=== PATIENT | male | born 1945 | race Caucasian/White ===

== ENCOUNTER 2016-05-09 14:02 | Observation (INO) | payer OTHER ==
[2016-05-09 14:23] VITALS: BMI 25.8
[2016-05-09] MEDS ORDERED: ASPIRIN 81 MG CHEWABLE TABLETS PO ONE (14:32)
--- NOTE | 2016-05-09 14:32 | PDOC ---
History of Present Illness - General Chief Complaint: Chest Pain Stated Complaint: CHEST PAIN Time Seen by Provider: 05/09/16 14:31 History Source: Patient Exam Limitations: No Limitations - History of Present Illness Initial Comments: 05/09/16 15:03 This pt is a 63 yo F/M with a past medical history of HTN, borderline DM and borderline HLD (not taking any medications) Pt presents to the ER with a complaint of chest pain Pain began last night pain is described as sharp, radiates to the neck No associated shortness of breath Pain is 4-6/10 Pt denies chest wall trauma or bruising. Pt denies lower extremity edema. Pt denies cough or URI symptoms currently (did have symptoms 3 weeks ago) Pt denies nausea or diaphoresis Pt denies lightheadedness, palpitations, or syncope Pt denies radiation of pain to his back Pain worsens with exertion, and self resolves. Pt denies allergies, and significant past hospitalizations. Pt denies alcohol use, tobacco use, or recreational drug use. Pt denies past history of cardiac disease. Pt denies recent travel. PMH: HTN, Prostate cancer s/p radiatio PSH: denies Meds: please seen MAR ALL; PCN Social: denies drug or tobacco use GENERAL/CONSTITUTIONAL: No: fever, chills, weakness, loss of appetite. HEAD, EYES, EARS, NOSE AND THROAT: No: change in vision, ear pain, discharge, sore throat, throat swelling. CARDIOVASCULAR: (+) chest pain (non currently) No: lightheadedness, palpitations , syncope RESPIRATORY: No: cough, shortness of breath, wheezing, hemoptysis, stridor. GASTROINTESTINAL: No: nausea, vomiting, diarrhea, abdominal cramping, rectal bleeding, constipation. GENITOURINARY: No: dysuria, hematuria, frequency, urgency, flank pain. MUSCULOSKELETAL: No: back pain, neck pain, joint pain, muscle swelling or pain SKIN AND BREASTS: No: lesions, pallor, rash or easy bruising. NEUROLOGIC: No: headache, vertigo, paresthesias, weakness ENDOCRINE: No: unexplained weight gain or loss HEMATOLOGIC/LYMPHATIC: No: anemia, easy bleeding, swelling nodes. GENERAL: The patient is in no acute distress. HEAD: Normal with no signs of trauma. EYES: PERRLA, EOMI, sclera anicteric, conjunctiva clear. ENT: Ears normal, nares patent, oropharynx clear without exudates. Moist mucous membranes. NECK: Normal range of motion, supple without lymphadenopathy, JVD, or masses. LUNGS: Breath sounds equal, clear to auscultation bilaterally. No wheezes, and no crackles. HEART: Regular rate and rhythm, normal S1 and S2 without murmur, rub or gallop. ABDOMEN: Soft, nontender, normoactive bowel sounds. No guarding, no rebound. No masses palpable. EXTREMITIES: Normal range of motion, no edema. No clubbing or cyanosis. No erythema, or tenderness. NEUROLOGICAL: Cranial nerves II through XII grossly intact. Normal speech. No focal neurological deficits. MUSCULOSKELETAL: Back non-tender to palpation, no CVA tenderness SKIN: Warm, Dry, normal turgor, no rashes or lesions noted. 05/09/16 16:39 Past History - Past Medical History Allergies/Adverse Reactions: Allergies Allergy/AdvReac Type Severity Reaction Status Date / Time Penicillins Allergy Verified 05/09/16 14:23 Home Medications: Ambulatory Orders Amlodipine Besylate 0 mg PO DAILY 05/09/16 Valsartan [Diovan] 160 mg PO DAILY 05/10/16 Cancer: Yes (PROSTATE, RADIATION) HTN: Yes - Psycho/Social/Smoking Cessation Hx Anxiety: No Suicidal Ideation: No Smoking Status: No Smoking History: Never smoked Number of Cigarettes Smoked Daily: 0 Information on smoking cessation initiated: No Hx Alcohol Use: No Drug/Substance Use Hx: No Substance Use Type: None *Physical Exam - Vital Signs Last Vital Signs Temp Pulse Resp BP Pulse Ox 98.3 F 93 H 20 136/83 98 05/10/16 10:00 05/10/16 14:07 05/10/16 14:07 05/10/16 14:07 05/10/16 09:00 Heart Score/ECG Review - History History: Highly suspicious - Electrocardiogram EKG: Normal - Age Age: >/= 65 - Risk Factors Risk Factors Heart Score: Yes Hx Hypertension Based on the list above the patient has:: 1-2 risk factors - Troponin Troponin: </= normal limit - Score Heart Score - Total: 5 ED Treatment Course - LABORATORY CBC & Chemistry Diagram: 05/10/16 06:00 05/10/16 06:00 - ADDITIONAL ORDERS Additional order review: 05/09/16 15:04 RBC 5.37 MCV 82.8 MCHC 33.6 RDW 13.4 MPV 7.4 L Neutrophils % 76.1 D Lymphocytes % 15.3 D Monocytes % 6.7 Eosinophils % 0.6 D Basophils % 1.3 - RADIOLOGY Radiology Studies Ordered: Category Date Time Status CHEST PA & LAT [RAD] Stat Radiology 05/09/16 14:32 Completed - Medications Given in the ED: ED Medications Discontinued Medications Generic Name Dose Route Start Last Admin Trade Name Jennifer PRN Reason Stop Dose Admin Aspirin 162 mg 05/09/16 14:32 05/09/16 15:04 Asa - PO 05/09/16 14:33 162 mg ONCE ONE Administration Medical Decision Making - Medical Decision Making 05/09/16 14:31 Differential includes cardiac ischemia, pe, asthma exacerbation, pneumonia, pneumothorax, pleural effusion, costochondritis, pericarditis, GERD. 05/09/16 16:34 Will do labs Will do CXR Will EKG Will re assess Will give Aspirin Will re assess 05/09/16 16:37 Laboratory Tests 05/09/16 05/09/16 05/09/16 15:04 15:04 15:04 WBC 6.9 D Hgb 15.0 Hct 44.5 Plt Count 262 INR 1.11 Sodium 141 Potassium 4.4 Chloride 106 Carbon Dioxide 26 BUN 20 H Creatinine 1.0 Random Glucose 119 H Creatine Kinase 61 Troponin I < 0.02 B-Natriuretic Peptide 05/09/16 15:04 WBC Hgb Hct Plt Count INR Sodium Potassium Chloride Carbon Dioxide BUN Creatinine Random Glucose Creatine Kinase Troponin I B-Natriuretic Peptide 86.[address] Tejada Will admit to [facility] for observation and repeat troponin 05/09/16 16:38 *DC/Admit/Observation/Transfer Diagnosis at time of Disposition: Chest pain Qualifiers: Chest pain type: unspecified Qualified Code(s): R07.9 - Chest pain, unspecified - Discharge Dispostion Condition at time of disposition: Stable Admit: Yes
[2016-05-09] MEDS ORDERED: ASPIRIN 81 MG CHEWABLE TABLETS ONE (14:54)
[2016-05-09 15:11] LABS: BASOPHIL 1.3 % (0-2.0); EOSINOPHIL 0.6 % (0-4.5); MCH 27.8 pg (25.7-33.7); MCHC 33.6 g/dl (32.0-35.9); MEAN CELL VOLUME 82.8 fl (80-96); MEAN PLT VOLUME 7.4 fl (7.5-11.1); NEUTROPHILS 76.1 % (42.8-82.8); PLATELET COUNT 262 K/MM3 (134-434); RDW 13.4 % (11.9-15.9); WHITE BLOOD COUNT 6.9 K/mm3 (4.0-10.0)
[2016-05-09 15:24] LABS: INR 1.11 (0.82-1.09); PROTHROMBIN TIME (PATIENT) 12.2 SEC (9.98-11.88)
[2016-05-09 15:33] LABS: ALBUMIN 3.9 g/dl (3.4-5.0); ANION GAP 9 (8-16); BILIRUBIN,TOTAL 0.5 mg/dL (0.2-1.0); CALCIUM 9.3 mg/dL (8.5-10.1); CO2 26 mmol/L (21-32); GLUCOSE,RANDOM 119 mg/dL (74-106); MAGNESIUM 2.2 mg/dL (1.8-2.4); SGOT/AST 17 U/L (15-37); SGPT/ALT 25 U/L (12-78); TOT PROT 7.3 g/dl (6.4-8.2)
[2016-05-09 15:37] LABS: ALK PHOS 97 U/L (45-117); TROPONIN I < 0.02 ng/ml (0.00-0.05)
[2016-05-09 20:38] LABS: TROPONIN I < 0.02 ng/ml (0.00-0.05)
[2016-05-10 07:44] LABS: BASOPHIL 3.6 % (0-2.0); EOSINOPHIL 2.2 % (0-4.5); MCH 27.7 pg (25.7-33.7); MCHC 33.1 g/dl (32.0-35.9); MEAN CELL VOLUME 83.7 fl (80-96); MEAN PLT VOLUME 7.7 fl (7.5-11.1); NEUTROPHILS 62.7 % (42.8-82.8); PLATELET COUNT 214 K/MM3 (134-434); RDW 13.5 % (11.9-15.9); WHITE BLOOD COUNT 5.8 K/mm3 (4.0-10.0)
[2016-05-10 08:09] LABS: CALCIUM 8.9 mg/dL (8.5-10.1)
[2016-05-10 08:15] LABS: ALBUMIN 3.4 g/dl (3.4-5.0); ALK PHOS 82 U/L (45-117); ANION GAP 9 (8-16); BILIRUBIN,TOTAL 0.5 mg/dL (0.2-1.0); CHOLESTEROL 163 mg/dL (50-200); CO2 27 mmol/L (21-32); CREATININE 0.9 mg/dL (0.7-1.3); GLUCOSE,RANDOM 104 mg/dL (74-106); LDL CHOLESTEROL (ONLY SJRH) 122 mg/dL (5-100); SGOT/AST 14 U/L (15-37); SGPT/ALT 18 U/L (12-78); TOT PROT 6.1 g/dl (6.4-8.2)
[2016-05-10 08:28] LABS: TROPONIN I < 0.02 ng/ml (0.00-0.05)
[2016-05-10] MEDS: ENOXAPARIN NA (PORCINE) 40 MG/0.4 ML DISP.SYRIN SQ SCH (09:27)
[2016-05-10] MEDS: VALSARTAN 160 MG TABLET (UD) PO SCH (09:28)
[2016-05-10] MEDS: ASPIRIN COATED 81 MG TABLET.EC PO SCH (09:28)
--- NOTE | 2016-05-10 09:48 | PN ---
Progress Note (short form) - Note Progress Note: Cardiology Consult Dictated IMP: HTN H/o of prostate Ca Chest pain, with mixed features (typical and atypical) in setting of recent URI REC: 1. Cardiac enzymes - x 3 2. Echo for EF assessment and r/o pericardial dz 3. Plan for stress MPI Thursday AM 4. Telemetry 5. Aspirin.
[2016-05-10] MEDS: METOPROLOL SUCCINATE 25 MG TAB.SR.24H (FP) PO SCH (10:43)
--- NOTE | 2016-05-10 10:56 | CONS ---
DATE OF CONSULTATION: 05/10/2016 REQUESTING PHYSICIAN: Katy Tejada MD REASON FOR CONSULTATION: Chest pain. HISTORY OF PRESENT ILLNESS: The patient is a 71-year-old man with history of prostate cancer status post radiation therapy, chronic hypertension, recent viral upper respiratory infection with persistent dry cough, who presented to the emergency room with an episode of substernal chest pressure which occurred yesterday while walking. He describes the discomfort as substernal chest pressure, tightness, with some radiation to the neck. It was relieved with resting. Patient had a similar episode several weeks ago, at which time, he saw his primary care physician and reports having had an exercise treadmill stress test which was unremarkable. According to the patients description, it appeared that he had a regular treadmill stress test without nuclear imaging. The discomfort completely resolved for the subsequent 2 weeks and again resurfaced yesterday. He denies nausea, vomiting, or diaphoresis. He denies palpitations, edema, or recent CHF symptoms. He has no history of cardiac disease. He describes being ill with a viral upper respiratory infection for the last 2-3 weeks with persistent cough. He denies fevers or chills. He has been comfortable overnight with no recurrence of chest pain. ECGs have not shown acute ischemic changes. ALLERGIES: He is allergic to PENICILLIN. MEDICATIONS: His home medications include valsartan 160 mg daily and amlodipine unknown dose. Here, he has been started on aspirin, subcutaneous Lovenox at the DVT prophylactic dose, and valsartan 160 mg daily. FAMILY HISTORY: Both parents had cardiac disease. He is unable to explain the exact extent of it, but both of them suffered from myocardial infarctions. SOCIAL HISTORY: A nonsmoker, has social alcohol, denies illegal drug use. PHYSICAL EXAMINATION: Vital signs: Afebrile, comfortable, pulse 88 and regular, blood pressure 123/ 84 (on presentation 151/97), O2 saturation 97 on room air. Neck: 2+ carotid pulses with no bruits. Heart: Regular with no murmurs. Chest: Clear, no wheezing. Abdomen: Soft, nontender. Extremities: Warm with no edema. DIAGNOSTIC DATA: Telemetry showed sinus rhythm overnight. Presenting EKG showed sinus tachycardia at 107 beats per minute with no acute ST changes. CBC was normal. INR was 1.1. His basic metabolic panel was normal with creatinine 0.9. LFTs were normal. CK and troponin were negative x3 sets. BNP was 86. LDL 122. CHEST X-RAY: No acute lung disease. IMPRESSION: 1. History of hypertension, well controlled. 2. History of prostate cancer status post radiation therapy. 3. Chest pain with mixed features (typical and atypical) in a setting of a recent viral upper respiratory infection. Exertional component is of some concern. He has had a recent ETT, reportedly normal, but additional evaluation with exercise myocardial perfusion imaging is recommended in light of his risk factors of HTN and + family history of CAD. RECOMMENDATIONS: 1. Cardiac enzymes are negative x3 sets ruling out acute myocardial infarction. 2. Echocardiogram for assessment of EF and rule out pericardial effusion, although this is not suggested on the presenting EKG. 3. Plan for exercise MPI on Thursday morning. 4. Continue telemetry. 5. Continue aspirin therapy daily. MELCHOR SCHAFER M.D. [id number] MTDD
--- NOTE | 2016-05-10 13:13 | EKG ---
Test Reason : Blood Pressure : / mmHG Vent. Rate : 089 BPM Atrial Rate : 089 BPM P-R Int : 138 ms QRS Dur : 078 ms QT Int : 370 ms P-R-T Axes : 041 -06 011 degrees QTc Int : 450 ms SINUS RHYTHM WITH PREMATURE ATRIAL COMPLEXES OTHERWISE NORMAL ECG WHEN COMPARED WITH ECG OF 09-MAY-2016 14:13, PREMATURE ATRIAL COMPLEXES ARE NOW PRESENT Confirmed by MELCHOR SCHAFER MD ([id number]) on 05/10/2016 1:13:08 PM Referred By: Connie JETT Confirmed By:MELCHOR SCHAFER MD
--- NOTE | 2016-05-10 13:23 | EKG ---
Test Reason : Blood Pressure : / mmHG Vent. Rate : 107 BPM Atrial Rate : 107 BPM P-R Int : 134 ms QRS Dur : 088 ms QT Int : 338 ms P-R-T Axes : 056 -20 015 degrees QTc Int : 451 ms SINUS TACHYCARDIA BIATRIAL ENLARGEMENT ABNORMAL ECG WHEN COMPARED WITH ECG OF 14-AUG-2006 17:32, VENT. RATE HAS INCREASED BY 35 BPM T WAVE AMPLITUDE HAS DECREASED IN ANTEROLATERAL LEADS Confirmed by MELCHOR SCHAFER MD ([id number]) on 05/10/2016 1:22:48 PM Referred By: Confirmed By:MELCHOR SCHAFER MD
--- NOTE | 2016-05-10 17:14 | HP ---
Admitting History and Physical - Admission Chief Complaint: Chest pain History of Present Illness: Pt is a 71 y/o male w/ HTN, borderline diabetes and borderline HLD who states that for the past 24 hrs prior to coming to the ER he was experiencing chest pain wc radiated to his neck. He denies any SOB or palpitations with the chest pain. Pt also fees tht for the past few weeks he probably has been having the same episodes. - Past Medical History Cardiovascular: Yes: HTN, Hyperlipdemia Endocrine: Yes: Diabetes Insipidus - Past Surgical History Past Surgical History: Yes: None - Smoking History Smoking history: Never smoked Aproximately how many cigarettes per day: 0 - Alcohol/Substance Use Hx Alcohol Use: No Home Medications - Allergies Allergies/Adverse Reactions: Allergies Allergy/AdvReac Type Severity Reaction Status Date / Time Penicillins Allergy Verified 05/09/16 14:23 - Home Medications Home Medications: Ambulatory Orders Amlodipine Besylate 0 mg PO DAILY 05/09/16 Valsartan [Diovan] 160 mg PO DAILY 05/10/16 Family Disease History - Family Disease History Family History: Unremarkable Review of Systems - Review of Systems Constitutional: reports: No Symptoms Eyes: reports: No Symptoms HENT: reports: No Symptoms Neck: reports: No Symptoms Cardiovascular: reports: Chest Pain Respiratory: reports: No Symptoms Gastrointestinal: reports: No Symptoms Genitourinary: reports: No Symptoms Physical Examination Vital Signs: Vital Signs Temperature 98.3 F 05/10/16 10:00 Pulse Rate 93 H 05/10/16 14:07 Respiratory Rate 20 05/10/16 14:07 Blood Pressure 136/83 05/10/16 14:07 O2 Sat by Pulse Oximetry (%) 98 05/10/16 09:00 Constitutional: Yes: Well Nourished Eyes: Yes: WNL HENT: Yes: WNL Neck: Yes: Supple Cardiovascular: Yes: WNL, Regular Rate and Rhythm Respiratory: Yes: WNL, Regular, CTA Bilaterally Gastrointestinal: Yes: WNL, Normal Bowel Sounds, Soft Musculoskeletal: Yes: WNL Extremities: Yes: WNL Edema: No Neurological: Yes: WNL, Alert, Oriented Labs: CBC, BMP 05/10/16 06:00 05/10/16 06:00 Problem List - Problems (1) Chest pain Assessment/Plan: Admit to tele Serial CPK/troponin to r/o ACS Cardio consult Code(s): R07.9 - CHEST PAIN, UNSPECIFIED Qualifiers: Chest pain type: unspecified Qualified Code(s): R07.9 - Chest pain, unspecified
[2016-05-10] MEDS ORDERED: INFLUENZA VACCINE 60 MCG/0.5 ML (P/F DISP.SYRIN 16-17) IM ONE (19:15)
[2016-05-10] MEDS ORDERED: INFLUENZA VACCINE 45 MCG/0.5 ML (MDV 16-17) IM ONE (21:00)
[2016-05-10] MEDS: ATORVASTATIN CA 20 MG TABLET (FP) PO SCH (22:25)
--- NOTE | 2016-05-11 10:02 | PN ---
Progress Note, Physician Chief Complaint: chest pain free overnight TELE: NSR with rare VPCs - Current Medication List Current Medications: Active Medications Aspirin (Ecotrin -) 81 mg PO DAILY COUNT INCLUDES THE [facility] Last Admin: 05/10/16 09:28 Dose: 81 mg Atorvastatin Calcium (Lipitor -) 20 mg PO HS COUNT INCLUDES THE [facility] Last Admin: 05/10/16 22:25 Dose: 20 mg Enoxaparin Sodium (Lovenox -) 40 mg SQ DAILY COUNT INCLUDES THE [facility] Last Admin: 05/10/16 09:27 Dose: 40 mg Metoprolol Succinate (Toprol Xl -) 12.5 mg PO DAILY COUNT INCLUDES THE [facility] Last Admin: 05/10/16 10:43 Dose: 12.5 mg Valsartan (Diovan -) 160 mg PO DAILY COUNT INCLUDES THE [facility] Last Admin: 05/10/16 09:28 Dose: 160 mg - Objective Vital Signs: Vital Signs Temperature 98.5 F 05/11/16 08:56 Pulse Rate 86 05/11/16 08:56 Respiratory Rate 16 05/11/16 09:01 Blood Pressure 148/82 05/11/16 08:56 O2 Sat by Pulse Oximetry (%) 97 05/11/16 09:01 Constitutional: Yes: No Distress Cardiovascular: Yes: Regular Rate and Rhythm Respiratory: Yes: CTA Bilaterally Gastrointestinal: Yes: Soft Edema: No Neurological: Yes: Alert, Oriented ...Motor Strength: WNL Labs: CBC, BMP 05/10/16 06:00 05/10/16 06:00 INR, PTT INR 1.11 (0.82-1.09) 05/09/16 15:04 - ....Imaging EKG: Image Reviewed Assessment/Plan IMP: HTN H/o of prostate Ca Chest pain, with mixed features (typical and atypical) in setting of recent URI REC: 1. Cardiac enzymes - x 3 2. Echo for EF assessment and r/o pericardial dz in AM 3. Plan for stress MPI in AM 4. Telemetry 5. Aspirin, statin, beta paloma
[2016-05-11] MEDS: ASPIRIN COATED 81 MG TABLET.EC PO SCH (10:18)
[2016-05-11] MEDS: METOPROLOL SUCCINATE 25 MG TAB.SR.24H (FP) PO SCH (10:18)
[2016-05-11] MEDS: ENOXAPARIN NA (PORCINE) 40 MG/0.4 ML DISP.SYRIN SQ SCH (10:18)
[2016-05-11] MEDS: VALSARTAN 160 MG TABLET (UD) PO SCH (10:18)
[2016-05-11] MEDS: ATORVASTATIN CA 20 MG TABLET (FP) PO SCH (22:16)
--- NOTE | 2016-05-12 11:00 | PN ---
Progress Note, Physician History of Present Illness: seen and examined today in [facility]. no overnight events. no new complaints. states that he is feeling better. - Current Medication List Current Medications: Active Medications Aspirin (Ecotrin -) 81 mg PO DAILY [facility] Last Admin: 05/11/16 10:18 Dose: 81 mg Atorvastatin Calcium (Lipitor -) 20 mg PO HS [facility] Last Admin: 05/11/16 22:16 Dose: 20 mg Enoxaparin Sodium (Lovenox -) 40 mg SQ DAILY [facility] Last Admin: 05/11/16 10:18 Dose: 40 mg Metoprolol Succinate (Toprol Xl -) 12.5 mg PO DAILY [facility] Last Admin: 05/11/16 10:18 Dose: 12.5 mg Valsartan (Diovan -) 160 mg PO DAILY [facility] Last Admin: 05/11/16 10:18 Dose: 160 mg - Objective Vital Signs: Vital Signs Temperature 98.0 F 05/12/16 06:00 Pulse Rate 80 05/12/16 06:00 Respiratory Rate 20 05/12/16 06:00 Blood Pressure 140/50 05/12/16 06:00 O2 Sat by Pulse Oximetry (%) 96 05/11/16 21:00 Constitutional: Yes: Well Nourished, No Distress, Calm Eyes: Yes: WNL, Conjunctiva Clear, EOM Intact, PERRL HENT: Yes: WNL, Atraumatic, Normocephalic Neck: Yes: WNL, Supple, Trachea Midline Cardiovascular: Yes: WNL, Regular Rate and Rhythm, S1, S2. No: Bradycardia, Tachycardia, Pulse Irregular, Bruit, JVD, Gallop, Murmur, Rub, S3, S4, Varicosities Respiratory: Yes: WNL, Regular, CTA Bilaterally. No: Rales, Rhonchi, Wheezes Gastrointestinal: Yes: WNL, Normal Bowel Sounds, Soft. No: Distention, Tenderness Musculoskeletal: Yes: WNL Extremities: Yes: WNL Edema: No Peripheral Pulses WNL: Yes Peripheral Pulses: Left Doralis Pedis: 2+, Right Dorsalis Pedis: 2+ Integumentary: Yes: WNL Neurological: Yes: WNL, Alert, Oriented, Cran Nerves II-XII Intact ...Motor Strength: WNL Psychiatric: Yes: WNL, Alert, Oriented Labs: CBC, BMP 05/10/16 06:00 05/10/16 06:00 INR, PTT INR 1.11 (0.82-1.09) 05/09/16 15:04 - ....Imaging Chest X-ray: Report Reviewed, Image Reviewed EKG: Report Reviewed, Image Reviewed Other: Report Reviewed, Image Reviewed (tele-nsr, pvcs) Problem List - Problems (1) Chest pain Code(s): R07.9 - CHEST PAIN, UNSPECIFIED Qualifiers: Chest pain type: unspecified Qualified Code(s): R07.9 - Chest pain, unspecified Assessment/Plan IMP: HTN H/o of prostate Ca Chest pain, with mixed features (typical and atypical) in setting of recent URI REC: Cardiac enzymes wnl- x 3 No sig arrhythmias on telemetry f/up echo to evaluate for structural heart disease f/up nuclear stress test to evaluate for ischemia Cont Asa, statin, beta paloma, diovan If echo and nuclear stress test show no sig abnormalities pt would be acceptable from a cardiac standpoint for discharge with a plan for close outpatient follow up
--- NOTE | 2016-05-12 12:09 | EKG ---
Test Reason : Blood Pressure : / mmHG Vent. Rate : 083 BPM Atrial Rate : 083 BPM P-R Int : 134 ms QRS Dur : 078 ms QT Int : 368 ms P-R-T Axes : 053 -08 019 degrees QTc Int : 432 ms NORMAL SINUS RHYTHM NORMAL ECG WHEN COMPARED WITH ECG OF 10-MAY-2016 09:36, PREMATURE ATRIAL COMPLEXES ARE NO LONGER PRESENT Confirmed by KIP GONAZLEZ MD ([id number]) on 05/12/2016 12:08:26 PM Referred By: Connie JETT Confirmed By:KIP GONZALEZ MD
[2016-05-12] MEDS: METOPROLOL SUCCINATE 25 MG TAB.SR.24H (FP) PO SCH (12:33)
[2016-05-12] MEDS: VALSARTAN 160 MG TABLET (UD) PO SCH (12:33)
[2016-05-12] MEDS: ASPIRIN COATED 81 MG TABLET.EC PO SCH (12:33)
[2016-05-12] MEDS: ENOXAPARIN NA (PORCINE) 40 MG/0.4 ML DISP.SYRIN SQ SCH (12:34)
[2016-05-12 13:19] VITALS: BP 136/69; PULSE 84; TEMP 98.3
--- NOTE | 2016-05-12 14:42 | PN ---
Progress Note, Physician History of Present Illness: No new complaints - Current Medication List Current Medications: Active Medications Aspirin (Ecotrin -) 81 mg PO DAILY [facility] Last Admin: 05/12/16 12:33 Dose: 81 mg Atorvastatin Calcium (Lipitor -) 20 mg PO HS [facility] Last Admin: 05/11/16 22:16 Dose: 20 mg Enoxaparin Sodium (Lovenox -) 40 mg SQ DAILY [facility] Last Admin: 05/12/16 12:34 Dose: 40 mg Metoprolol Succinate (Toprol Xl -) 12.5 mg PO DAILY [facility] Last Admin: 05/12/16 12:33 Dose: 12.5 mg Valsartan (Diovan -) 160 mg PO DAILY [facility] Last Admin: 05/12/16 12:33 Dose: 160 mg - Objective Vital Signs: Vital Signs Temperature 98.3 F 05/12/16 09:00 Pulse Rate 84 05/12/16 09:00 Respiratory Rate 18 05/12/16 09:00 Blood Pressure 136/69 05/12/16 09:00 O2 Sat by Pulse Oximetry (%) 96 05/12/16 09:00 Cardiovascular: Yes: WNL, Regular Rate and Rhythm Respiratory: Yes: WNL, Regular, CTA Bilaterally Gastrointestinal: Yes: WNL, Normal Bowel Sounds, Soft Labs: CBC, BMP 05/10/16 06:00 05/10/16 06:00 INR, PTT INR 1.11 (0.82-1.09) 05/09/16 15:04 Problem List - Problems (1) Chest pain Code(s): R07.9 - CHEST PAIN, UNSPECIFIED Qualifiers: Chest pain type: unspecified Qualified Code(s): R07.9 - Chest pain, unspecified
== END 2016-05-12 18:58 | disposition home or self-care (01) ==
LOC: JER 14:02 → JERBED 17:01 → UNDOADMOB 17:01 → J4W 23:04 → JERBED 23:04 → OBSVTOIN 05-10 03:26 → INTOOBSV 05-10 03:26 → JERBED 05-12 14:18 → J4W 05-12 14:18
PROVIDERS: ADMIT Internal Medicine; ATTEND Internal Medicine
DX: R07.9 Chest pain, unspecified (principal); I10 Essential (primary) hypertension; E78.5 Hyperlipidemia, unspecified; E11.9 Type 2 diabetes mellitus without complications
CPT/HCPCS: 36415; 71020-TC; 78452-TC; 80053; 80061; 82550; 83036; 83721; 83735; 83880; 84484; 85025; 85610; 93005; 93010; 93017; 93306-TC; 99284-25; A9502; G0378; Q2037

== ENCOUNTER 2021-08-18 11:17 | Emergency (ER) | payer OTHER ==
[2021-08-18 11:23] VITALS: PULSE 95; TEMP 97; BMI 24.3
[2021-08-18 12:06] VITALS: BP 160/95
== END 2021-08-18 13:31 | disposition home or self-care (01) ==
LOC: JER 11:17
DX: I10 Essential (primary) hypertension (principal)
CPT/HCPCS: 99282-25

== ENCOUNTER 2022-04-28 16:22 | Inpatient (IN) | payer OTHER ==
[2022-04-28 19:46] LABS: BASO % 0.3 % (0-2.0); EOS % 0.4 % (0-4.5); HEMATOCRIT 39.8 % (35.4-49); HEMOGLOBIN 13.1 GM/dL (11.7-16.9); LYMPH % 6.5 % (8-40); MCH 26.9 pg (25.7-33.7); MCHC 32.9 g/dl (32.0-35.9); MEAN CELL VOLUME 81.7 fl (80-96); MEAN PLT VOLUME 7.6 fl (7.5-11.1); MONO % 11.4 % (3.8-10.2); NEUT % 81.4 % (42.8-82.8); PLATELET COUNT 232 10^3/uL (134-434); RBC 4.87 M/mm3 (4.00-5.60); RDW 14.1 % (11.9-15.9); WHITE BLOOD COUNT 7.7 K/mm3 (4.0-10.0)
[2022-04-28 19:57] LABS: INR 1.15 (0.83-1.09); PROTHROMBIN TIME (PATIENT) 13.2 SEC (9.7-13.0)
[2022-04-28 20:00] LABS: ACTIVATED PTT 29.4 SECONDS (25.2-36.5); ALBUMIN 3.6 g/dl (3.4-5.0); CALCIUM 8.4 mg/dL (8.5-10.1)
[2022-04-28 20:01] LABS: BLOOD UREA NITROGEN 12.3 mg/dL (7-18)
[2022-04-28 20:03] LABS: CREATININE 1.2 mg/dL (0.55-1.3)
[2022-04-28 20:05] LABS: BILIRUBIN,TOTAL 0.5 mg/dL (0.2-1); TOT PROT 6.7 g/dl (6.4-8.2)
[2022-04-28 20:08] LABS: N-TERMINAL BNP 703.8 pg/ml (5-450)
[2022-04-28] MEDS ORDERED: SODIUM CHLORIDE 0.9% 500 ML INFUS.BAG IV ONE (20:32)
[2022-04-28] MEDS ORDERED: ACETAMINOPHEN 1000 MG/100 ML BAG IVPB ONE (20:32)
[2022-04-28] MEDS ORDERED: ACETAMINOPHEN INJECTION 100 ML IVPB ONE (20:42)
[2022-04-29 07:44] LABS: BASO % 0.7 % (0-2.0); EOS % 0.2 % (0-4.5); HEMATOCRIT 38.8 % (35.4-49); LYMPH % 12.7 % (8-40); MCH 27.4 pg (25.7-33.7); MCHC 33.4 g/dl (32.0-35.9); MEAN CELL VOLUME 81.9 fl (80-96); MEAN PLT VOLUME 7.5 fl (7.5-11.1); MONO % 16.4 % (3.8-10.2); PLATELET COUNT 200 10^3/uL (134-434); RBC 4.73 M/mm3 (4.00-5.60); RDW 14.4 % (11.9-15.9); WHITE BLOOD COUNT 5.5 K/mm3 (4.0-10.0)
[2022-04-29 08:05] LABS: BLOOD UREA NITROGEN 12.8 mg/dL (7-18); CALCIUM 8.2 mg/dL (8.5-10.1)
[2022-04-29 08:06] LABS: ALBUMIN 3.4 g/dl (3.4-5.0)
[2022-04-29 08:11] LABS: BILIRUBIN,TOTAL 0.6 mg/dL (0.2-1); TOT PROT 6.3 g/dl (6.4-8.2)
[2022-04-29] MEDS ORDERED: LOSARTAN POTASSIUM 50 MG TABLET ONE (09:44)
[2022-04-29] MEDS: LOSARTAN POTASSIUM 50 MG TABLET PO SCH (09:44)
[2022-04-29] MEDS ORDERED: amLODIPine BESYLATE 10 MG TABLET (FP) ONE (09:44)
[2022-04-29] MEDS: ENOXAPARIN NA (PORCINE) 40 MG/0.4 ML DISP.SYRIN SQ SCH (09:44)
[2022-04-29] MEDS ORDERED: ENOXAPARIN NA (PORCINE) 40 MG/0.4 ML DISP.SYRIN SQ ONE (09:44)
[2022-04-29] MEDS: amLODIPine BESYLATE 10 MG TABLET (FP) PO SCH (09:45)
[2022-04-29] MEDS ORDERED: ACETAMINOPHEN INJECTION 100 ML IVPB ONE (10:19)
[2022-04-29] MEDS: ACETAMINOPHEN 1000 MG/100 ML BAG IVPB PRN ×3 (10:24→23:14)
[2022-04-29 16:07] VITALS: BMI 25.0
[2022-04-30] MEDS: amLODIPine BESYLATE 10 MG TABLET (FP) PO SCH (10:36)
[2022-04-30] MEDS: LOSARTAN POTASSIUM 50 MG TABLET PO SCH (10:36)
[2022-04-30] MEDS: ENOXAPARIN NA (PORCINE) 40 MG/0.4 ML DISP.SYRIN SQ SCH (10:36)
[2022-04-30] MEDS: traMADol HCL 50 MG TABLET PO PRN (11:53)
[2022-04-30] MEDS ORDERED: REMDESIVIR 200 MG in SODIUM CHLORIDE 250 ML IVPB ONE (15:00)
[2022-04-30] MEDS: INSULIN SLIDING SCALE (NOVOLOG) 1 VIAL SQ SCH (22:26)
[2022-05-01] MEDS: traMADol HCL 50 MG TABLET PO PRN (05:47)
[2022-05-01] MEDS: ENOXAPARIN NA (PORCINE) 40 MG/0.4 ML DISP.SYRIN SQ SCH (11:06)
[2022-05-01] MEDS: LOSARTAN POTASSIUM 50 MG TABLET PO SCH (11:06)
[2022-05-01] MEDS: amLODIPine BESYLATE 10 MG TABLET (FP) PO SCH (11:06)
[2022-05-01] MEDS: DEXAMETHASONE 4 MG TABLET (FP) PO SCH (11:06)
[2022-05-01] MEDS: INSULIN SLIDING SCALE (NOVOLOG) 1 VIAL SQ SCH ×4 (11:07→21:58)
[2022-05-01] MEDS: REMDESIVIR 100 MG in SODIUM CHLORIDE 250 ML IVPB SCH (16:57)
[2022-05-02] MEDS: INSULIN SLIDING SCALE (NOVOLOG) 1 VIAL SQ SCH ×4 (07:00→22:23)
[2022-05-02] MEDS: amLODIPine BESYLATE 10 MG TABLET (FP) PO SCH (11:18)
[2022-05-02] MEDS: DEXAMETHASONE 4 MG TABLET (FP) PO SCH (11:19)
[2022-05-02] MEDS: LOSARTAN POTASSIUM 50 MG TABLET PO SCH (11:19)
[2022-05-02] MEDS: ENOXAPARIN NA (PORCINE) 40 MG/0.4 ML DISP.SYRIN SQ SCH (11:20)
[2022-05-02] MEDS: REMDESIVIR 100 MG in SODIUM CHLORIDE 250 ML IVPB SCH (14:41)
[2022-05-02] MEDS ORDERED: REMDESIVIR 100 MG in SODIUM CHLORIDE 250 ML IVPB ONE (19:19)
[2022-05-02] MEDS: traMADol HCL 50 MG TABLET PO PRN (22:29)
[2022-05-03] MEDS: INSULIN SLIDING SCALE (NOVOLOG) 1 VIAL SQ SCH ×4 (06:17→21:24)
[2022-05-03] MEDS ORDERED: INSULIN SLIDING SCALE (NOVOLOG) 1 VIAL SQ ONE (06:39)
[2022-05-03 08:21] VITALS: RESP 18
[2022-05-03] MEDS ORDERED: REMDESIVIR 100 MG in SODIUM CHLORIDE 250 ML IVPB SCH (10:00)
[2022-05-03] MEDS: amLODIPine BESYLATE 10 MG TABLET (FP) PO SCH (11:30)
[2022-05-03] MEDS: DEXAMETHASONE 4 MG TABLET (FP) PO SCH (11:30)
[2022-05-03] MEDS: LOSARTAN POTASSIUM 50 MG TABLET PO SCH (11:30)
[2022-05-03] MEDS: ENOXAPARIN NA (PORCINE) 40 MG/0.4 ML DISP.SYRIN SQ SCH (11:30)
[2022-05-03] MEDS: REMDESIVIR 100 MG in SODIUM CHLORIDE 250 ML IVPB SCH (15:21)
[2022-05-04] MEDS: INSULIN SLIDING SCALE (NOVOLOG) 1 VIAL SQ SCH ×2 (06:19→12:07)
[2022-05-04] MEDS: ENOXAPARIN NA (PORCINE) 40 MG/0.4 ML DISP.SYRIN SQ SCH (09:52)
[2022-05-04] MEDS: DEXAMETHASONE 4 MG TABLET (FP) PO SCH (09:52)
[2022-05-04] MEDS: amLODIPine BESYLATE 10 MG TABLET (FP) PO SCH (09:53)
[2022-05-04] MEDS: LOSARTAN POTASSIUM 50 MG TABLET PO SCH (09:53)
[2022-05-04] MEDS: REMDESIVIR 100 MG in SODIUM CHLORIDE 250 ML IVPB SCH (14:28)
[2022-05-04 14:59] VITALS: BP 141/65; PULSE 81; TEMP 97.5
== END 2022-05-04 17:00 | disposition home or self-care (01) | DRG 178 ==
LOC: JER 16:22 → JERBED 04-29 00:26 → OBSVTOIN 04-29 00:45 → JERBED 04-29 13:54 → J4S 04-29 14:12
PROVIDERS: ADMIT Internal Medicine; ATTEND Internal Medicine
PROC: XW033E5 Introduction of Remdesivir Anti-infective into Peripheral Vein, Percutaneous Approach, New Technology Group 5 (ICD-10-PCS; principal; 2022-04-30)
DX: U07.1 COVID-19 (principal); J98.11 Atelectasis; I10 Essential (primary) hypertension; E78.5 Hyperlipidemia, unspecified; E11.9 Type 2 diabetes mellitus without complications; R91.1 Solitary pulmonary nodule; R41.82 Altered mental status, unspecified; D35.00 Benign neoplasm of unspecified adrenal gland; R53.1 Weakness; R29.6 Repeated falls; K76.0 Fatty (change of) liver, not elsewhere classified; W18.30XA Fall on same level, unspecified, initial encounter; Y92.098 Other place in other non-institutional residence as the place of occurrence of the external cause; Y99.8 Other external cause status; Z85.46 Personal history of malignant neoplasm of prostate
CPT/HCPCS: 0241U-QW; 36415; 70450-TC; 70491-TC; 71260-TC; 72125-TC; 74177-TC; 80053; 82962; 83036; 83880; 84443; 84484; 85025; 85379; 85610; 85730; 93005; 93010; 93880-TC; 99285-25; C9399; G0378; Q9967